=== PATIENT | male | born 1975 | race Caucasian/White ===

== ENCOUNTER 2022-09-03 16:43 | Emergency (ER) | payer OTHER, SELFPAY ==
[2022-09-03 16:57] VITALS: BP 128/80; PULSE 84; RESP 16; TEMP 38; O2SAT 99
--- NOTE | 2022-09-03 17:06 | ED.MALEGU ---
HPI - Male Genitourinary General Chief complaint: Urogenital-Male Stated complaint: Low back pain; fever Time Seen by Provider: 09/03/22 17:07 Source: patient and RN notes reviewed Mode of arrival: ambulatory Limitations: no limitations History of Present Illness HPI Narrative: 47 y/o male presented for c/o persistent low back pain for one week. Endorses left testicular pain for 2 days. Reports fever, headache, and decreased appetite started today. Temp 101 at home. Denies urinary complaints such as hematuria, dysuria, change in stream, decreased output. Denies n/v/d/constipation, testicular swelling or discoloration. Denies numbness, tingling or weakness of lower extremities. Rates back pain 5/10. Has taken Tylenol for symptoms, nothing today. Related Data Allergies Allergy/AdvReac Type Severity Reaction Status Date / Time clindamycin Allergy Unknown Rash Verified 09/03/22 16:58 Review of Systems Review of Systems: Per HPI [facility] Family History Family History Father Hypertension Sibling Hypertension Social History Social History Smoking status: Never smoker Second hand tobacco smoke exposure: Yes Alcohol intake: current Alcohol use details: rare Substance use: never Substance use type: does not use Gender identity (if verbalized by the patient): Male Sexual Orientation (if Verbalized by the Patient): Straight or Heterosexual Comments At time of signature, I have reviewed and agree with nursing past medical, surgical, social and family history unless otherwise noted. Please see nursing chart for further information. There is no relevant family history pertinent to the presenting complaint Exam Narrative: GENERAL: Well-appearing, appears in pain, in no acute distress. HEAD: Normocephalic EYES: EOMI. . ENT: Mucous membranes pink and moist. NECK: Normal AROM. Supple. CHEST: No respiratory distress. Clear to auscultation. HEART: Regular rate and rhythm. ABDOMEN: Soft, nontender, nondistended, normal active bowel sounds. No CVA tenderness. MUSCULOSKELETAL: No bony tenderness. Patient holding both sides of the lower back. SKIN: Warm, dry, no rash. NEURO: Alert and oriented x3. Gait steady. PSYCH: Normal affect. Course Course Emergency Course: Patient is aware of diagnosis, understands and agrees to treatment plan. Anticipatory guidance given. Portions of this record may have been created with voice recognition software Level of Care: Express Care Visit Vital Signs Vital signs: Vital Signs Oxygen Delivery Room Air 09/03/22 16:50 Temperature 100.4 F H 09/03/22 16:57 Pulse Rate 84 09/03/22 16:57 Respiratory Rate 16 09/03/22 16:57 Blood Pressure 128/80 09/03/22 16:57 Pulse Oximetry 99 09/03/22 16:57 Oxygen Delivery Room Air 09/03/22 16:50 Reviewed Transfer Transfered to: [place] Transportation: Other (Private vehicle) Transfer rationale: Pt is agreeable to transfer. Requests transfer to [facility] via private vehicle. Risks of transportation reviewed with pt including injury, worsening of condition and . v/u. will be driving pt; Report called to hospital, spoke with Grazyna Salter accepting physician. Pt is in stable condition at time of transfer. Advised to remain NPO and go directly to the hospital. MDM - Male Genitourinary MDM Narrative Medical decision making narrative: Patient presented for low back pain, left testicular pain,fever, headache, and decreased appetite. Flu negative. Urine unremarkable. No CVA tenderness. Reports left testicular pain. Reports back pain is worsening. Recommend ER transfer. Requests [place]. Differential Diagnosis Differential diagnosis: Likely urinary tract infection, urethritis, prostatitis and other (renal colic, discitis) Lab Data Labs: Influenza A Screen Negative
--- NOTE | 2022-09-03 18:06 | PC.NURSE ---
PT REPORTS HIS BACK PAIN IS GETTING WORSE SITTING IN EXAM ROOM. CROCHETER HAND IS AWARE, ORDERS TO BE PLACED.
[2022-09-03] MEDS: KETOROLAC (*BKC) 60 MG/2 ML VIAL IM (18:17)
[2022-09-03 18:20] VITALS: PULSE 96; RESP 16; TEMP 38.8; O2SAT 99
== END 2022-09-03 18:30 | disposition short-term general hospital (02) ==
PROVIDERS: Emergency Provider Nurse Practitioner Family; PCP Family Medicine
DX: N50.812 Left testicular pain (principal); M54.50 Low back pain, unspecified
CPT/HCPCS: 81003; 87804; 96372; 99213; G0463; J1885

== ENCOUNTER 2022-09-03 18:55 | Emergency (ER) | payer OTHER, SELFPAY ==
[2022-09-03] VITALS (11 sets, daily range): BP systolic 116–127; BP diastolic 73–82; PULSE 73–85; RESP 20; TEMP 36.8; O2SAT 96–99
--- NOTE | ~2022-09-03 | US_ITS ---
EXAMINATION: US scrotum doppler DATE: 09/03/2022 19:42 INDICATION: L SIDED TESTICULAR PAIN . TECHNIQUE: Grayscale and Doppler ultrasound images of the testes were obtained. COMPARISON: None. FINDINGS: The right testis measures 4.6 x 2.1 x 2.7 cm. The left testis measures 4.6 x 2.2 x 2.8 cm. No testicular mass. There is normal vascular flow to both testes. The right epididymis is normal with normal vascular flow. The left epididymis contains 3 small epididymal cysts and is otherwise normal with normal vascular flow. There is no varicocele or hydrocele IMPRESSION: Normal scrotal ultrasound findings. Reviewed, dictated and finalized at location K. 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
--- NOTE | ~2022-09-03 | CT_ITS ---
CT Abdomen and Pelvis with contrast. History: Left flank pain, fever. Spiral CT of the abdomen and pelvis was performed after the administration of intravenous contrast. 1 00 cc of Omnipaque 350 was administered intravenously without complication. Dose reduction technique was used on this scan by utilizing automated exposure control and iterative reconstruction technique. The dose-length product (DLP) was 397.72 mGy-cm. Findings: Scans through the lung bases demonstrate minimal pleural fluid bilaterally. The liver, spleen, pancreas, gallbladder, adrenals and kidneys are within normal limits. No evidence of aortic aneurysm. No lymphadenopathy is seen. There is no evidence of bowel obstruction. There is no evidence to suggest acute appendicitis or dive rticulitis. Images through the pelvis were performed. Urinary bladder unremarkable. Prostate gland mildly enlarge d. No ascites is seen. Impression: Minimal pleural fluid bilaterally, otherwise unremarkable exam. Reviewed, dictated and finalized at [facility]. CAL ATTENDANT Impression: Minimal pleural fluid bilaterally, otherwise unremarkable exam.
--- NOTE | 2022-09-03 22:10 | ED.GENADULT ---
HPI - General Adult General Chief complaint: Urogenital-Male Stated complaint: L TESTICULAR PAIN,FEVER,LBP Time Seen by Provider: 09/03/22 21:05 History of Present Illness HPI narrative: 47-year-old male presents to the emergency room from urgent care for evaluation of left flank pain and radiates into his testicular region. Patient states he has been experiencing left flank pain for 1 week, and has since started radiating into his left testicle. Patient states of urgent care he was given a shot of Toradol which relieved his symptoms. Patient denies dysuria, hematuria or difficulty urinating. Denies constipation or pain when he defecates. Reports normal, regular bowel movements. Patient states that he began experiencing low-grade fever today Related Data Allergies Allergy/AdvReac Type Severity Reaction Status Date / Time clindamycin Allergy Unknown Rash Verified 09/03/22 16:58 Review of Systems Review of Systems: CONSTITUTIONAL: Denies fever, chills, or sweats. EYES: Denies visual changes, redness, or discharge. ENT: Denies rhinorrhea, congestion, sore throat, or otalgia. CARDIOVASCULAR: Denies chest pain, palpitations, or edema. RESPIRATORY: Denies cough or dyspnea. GASTROINTESTINAL: Reports left flank pain GENITOURINARY: Reports left-sided testicular pain SKIN: Denies rash or itching. MUSCULOSKELETAL: Denies back pain, joint pain, or myalgia. NEUROLOGIC: Denies headache, numbness, dizziness, or weakness. PSYCHIATRIC: Denies anxiety or depression. [facility] Family History Family History Father Hypertension Sibling Hypertension Social History Social History Smoking status: Never smoker Second hand tobacco smoke exposure: Yes Alcohol intake: current Alcohol use details: rare Substance use: never Substance use type: does not use Gender identity (if verbalized by the patient): Male Sexual Orientation (if Verbalized by the Patient): Straight or Heterosexual Exam Narrative: GENERAL: Well-appearing, well-nourished, no physical limitations, and in no acute distress. HEAD: Normocephalic, atraumatic. EYES: Conjunctivae normal, PERRLA and EOMI. CHEST: Clear to auscultation. No respiratory distress. No wheezes rales or rhonchi. HEART: Regular rate and rhythm. No murmur heard. Normal peripheral pulses. ABDOMEN: Soft, nontender, nondistended, normal active bowel sounds. : Normal external male/female exam. BACK: Left CVA tenderness EXTREMITIES: Normal range of motion. No edema. No clubbing or cyanosis SKIN: Warm, dry, no rash. No noted wounds NEURO: No focal deficits. Alert and oriented x3. MAEW. CN's II-XI intact bilaterally, normal gait PSYCH: Cooperative. Normal mood and affect. Course Vital Signs Vital signs: Vital Signs Temperature 36.8 C 09/03/22 19:38 Pulse Rate 85 09/03/22 19:38 Respiratory Rate 20 09/03/22 19:38 Blood Pressure 127/76 09/03/22 19:38 Pulse Oximetry 96 09/03/22 19:38 Oxygen Delivery Room Air 09/03/22 19:38 Temperature 36.8 C 09/04/22 00:46 Pulse Rate 74 09/04/22 00:46 Respiratory Rate 16 09/04/22 00:46 Blood Pressure 130/78 09/04/22 00:46 Pulse Oximetry 100 09/04/22 00:46 Oxygen Delivery Room Air 09/03/22 19:38 Medical Decision Making MDM Narrative Medical decision making narrative: 47-year-old male came in complaining of left flank pain radiating to his left testicle. Exam showed no signs of peritonitis. No evidence of acute appendectomy at this time. Patient was well-appearing and nontoxic. Scrotal ultrasound was obtained initially due to concerns over possible testicular torsion. Ultrasound was normal. Due to the patient having flank pain, CT scan was obtained. There is no evidence of obstructing stone CT scan showed possible enterocolitis. Labs were unremarkable. Urine was clean. Presentation is not consistent
[2022-09-03 23:00] LABS: Basophils Percent Auto 0.3 % (0.2-1.2); Eosinophils Absolute Auto 0.1 K/mm3 (0-0.3); Eosinophils Percent Auto 0.7 % (0-4.4); Hematocrit 41.4 % (42.0-52.0); Hemoglobin 13.9 g/dL (14.0-18.0); Immature Granulocyte Absolute 0.01 K/mm3 (0.00-0.031); Immature Granulocyte Percent A 0.1 % (0-0.5); Lymphocytes Absolute Auto 1.24 K/mm3 (0.9-3.2); Lymphocytes Percent Auto 17.9 % (18.3-44.2); Mean Corpuscular HGB Conc 33.6 g/dl (32-36); Mean Corpuscular Volume 89.2 fl (80-100); Mean Platelet Volume 10.5 fl (7.4-10.4); Monocytes Absolute Auto 0.8 K/mm3 (0.1-0.6); Neutrophils Absolute Auto 4.8 K/mm3 (1.3-6.7); Platelet Count Result 172 k/mm3 (150-375); Red Blood Count 4.64 M/mm3 (4.6-6.20); Red Cell Distribution Width 11.9 % (11.5-14.5); White Blood Count 6.9 K/mm3 (4.5-10.0)
[2022-09-03 23:01] LABS: Add Urine Microscopic? NO; Appearance Urine Clear (Clear); Bilirubin Urine Negative (Negative); Blood Urine Negative (Negative); Color Urine Light Yellow (Yellow); Glucose Urine UA Negative (Negative); Ketones Urine Negative (Negative); Leukocyte Esterase Ur Negative LEU/UL (Negative); Nitrate Urine Negative (Negative); Protein Urine Negative (Negative); Specific Grav Ur <= 1.005 (1.001-1.035); Urobilinogen Urine 0.2 mg/dL (<2.0)
[2022-09-03 23:08] LABS: RBC Urine 0-2 /hpf (0-2); WBC Urine 0-3 /hpf
[2022-09-03 23:12] LABS: Alanine Aminotransferase 26 U/L (6-50); Alkaline Phosphatase 40 U/L (38-126); Anion Gap 8 mmol/L (8-16); Aspartate Amino Transferase 27 U/L (17-59); Bilirubin,Total 0.5 mg/dL (0.2-1.3); Blood Urea Nitrogen 11 mg/dL (9-20); Calcium 8.3 mg/dL (8.4-10.2); Carbon Dioxide 27 mmol/L (22-30); Chloride 102 mmol/L (98-107); Estimated CRCL calculation 92 ml/min; Estimated Glomerular Filt Rate > 60; Glucose 105 mg/dL (65-110); Potassium 3.5 mmol/L (3.4-5.0); Sodium 137 mmol/L (137-145)
[2022-09-03] MEDS: SODIUM CHLORIDE 0.9% IV 1,000 ML 999 ML IV CONT (23:21)
[2022-09-04] VITALS (14 sets, daily range): BP systolic 125–133; BP diastolic 77–82; PULSE 72–74; RESP 16; TEMP 36.7–36.8; O2SAT 91–100
== END 2022-09-04 01:47 | disposition home or self-care (01) ==
PROVIDERS: Emergency Provider Nurse Practitioner Family; PCP Family Medicine
DX: K52.9 Noninfective gastroenteritis and colitis, unspecified (principal); N50.812 Left testicular pain
CPT/HCPCS: 36415; 74177; 76870; 80053; 81003; 85025; 87804; 93976; 96360; 96372; 99284; J1885; J7030; Q9967

== ENCOUNTER 2023-02-05 07:05 | Day surgery (SDC) | payer OTHER, SELFPAY ==
[2022-12-19 14:21] VITALS: BMI 22.4
[2023-01-16 10:52] VITALS: BMI 21.7
--- NOTE | 2023-02-04 17:17 | P.PNAN_ITS ---
Anes - Initial Pre Proc Eval Procedure: Operation Date: 02/05/23 09:00 Proposed Procedures p Screening Colonoscopy - Simone Ontiveros MD Date/Time: 02/04/23 17:17 Surgeon: Simone Ontiveros MD Pre Op Diagnosis: Neoplasm Screening Patient Data Age: 47 Gender: M Height: 1.83 m Weight: 72.5 kg Allergies Allergy/AdvReac Type Severity Reaction Status Date / Time clindamycin Allergy Unknown Rash Verified 02/05/23 07:45 Home Medications Medication Instructions Recorded Confirmed Type buspirone 7.5 mg tablet See Rx Instructions .Route 11/19/22 02/05/23 Rx .COMPLEX #270 tabs trazodone 100 mg tablet See Rx Instructions .Route 11/19/22 02/05/23 Rx .COMPLEX #135 tabs sertraline 25 mg tablet (Zoloft) 25 mg PO DAILY #30 tabs 02/03/23 02/03/23 Rx Patient hx anesthesia problems: none Family hx anesthesia problems: none Results Review: All pre-operative results and documents have been reviewed as part of the pre- operative evaluation. [facility] Past Medical History Medical History (Updated 02/05/23 @ 08:39 by Simone Ontiveros MD) Colon cancer screening RUY (generalized anxiety disorder) Family History Family History Father Hypertension Sibling Hypertension Social History Social History Smoking status: Never smoker Second hand tobacco smoke exposure: Yes Alcohol intake: current Alcohol use details: rare Substance use: never Substance use type: does not use Living arrangements: with family Occupation/Education: occupation Gender identity (if verbalized by the patient): Male Sexual Orientation (if Verbalized by the Patient): Straight or Heterosexual Spiritual care concerns: No Anes - Eval Final PreProcedure Day of Procedure 02/04/23 17:17 Patient weight: normal Heart: regular rate and rhythm Lungs: clear to auscultation and normal air movement Airway: Mallampati scale class II Neurological: alert and oriented Last oral intake: >/= 8 hours ASA classification: II Emergent: no Anesthetic plan: proceed Anesthesia type and monitoring: general GIVS and standard monitoring Results Review: All pre-operative results and documents have been reviewed as part of the pre- operative evaluation. Informed Consent: The patient's anesthetic plan and its attendant risks and benefits were discussed with the patient/family/POA. Questions were solicited and answers provided to the satisfaction of the patient/family/POA.
[2023-02-05 07:52] VITALS: BMI 21.2
[2023-02-05 07:56] VITALS: BP 118/81; PULSE 74; RESP 16; TEMP 36.7; O2SAT 100
[2023-02-05] MEDS: LACTATED RINGERS 1,000 ML 150 ML IV CONT (08:10)
--- NOTE | 2023-02-05 08:38 | PM.HPGS ---
History of Present Illness History of Present Illness Consent: Risks, benefits, and alternatives have been discussed and questions answered. Patient agrees to proceed with procedure. Chief complaint: Neoplasm Screening Narrative: John Flores is a 47 year old male here for first screening colonoscopy Review of Systems Constitutional: Constitutional: Denies headache(s) and Denies weakness Eyes: Eyes: Denies blurry vision ENT: Reports Normal hearing present, Denies headache(s) and Denies neck pain Cardiovascular: Cardiovascular: Denies chest pain and Denies dyspnea Respiratory: Respiratory: Denies dyspnea Gastrointestinal: Gastrointestinal: Reports no additional gastrointestinal complaints Genitourinary: Genitourinary: Denies dysuria Musculoskeletal: Musculoskeletal: Denies neck pain Integumentary/Breasts: Skin/Breast: Denies dry skin Neurologic: Reports Normal hearing present, Denies headache(s) and Denies weakness Psychiatric: Psychiatric: Denies anxiety Endocrine: Endocrine: Denies change in body appearance Hematologic/Lymphatic: Hematologic/Lymphatic: Denies easy bleeding Allergic/Immunologic: Allergic/Immunologic: Denies urticaria PMF Past Medical History Medical History (Updated 02/05/23 @ 08:39 by Simone Ontiveros MD) Colon cancer screening RUY (generalized anxiety disorder) Family History Family History Father Hypertension Sibling Hypertension Social History Social History Smoking status: Never smoker Second hand tobacco smoke exposure: Yes Alcohol intake: current Alcohol use details: rare Substance use: never Substance use type: does not use Living arrangements: with family Occupation/Education: occupation Gender identity (if verbalized by the patient): Male Sexual Orientation (if Verbalized by the Patient): Straight or Heterosexual Spiritual care concerns: No Meds Home Medications and Allergies Home Medications Medication Instructions Recorded Confirmed Type buspirone 7.5 mg tablet See Rx Instructions .Route 11/19/22 02/05/23 Rx .COMPLEX #270 tabs trazodone 100 mg tablet See Rx Instructions .Route 11/19/22 02/05/23 Rx .COMPLEX #135 tabs sertraline 25 mg tablet (Zoloft) 25 mg PO DAILY #30 tabs 02/03/23 02/03/23 Rx Allergies Allergy/AdvReac Type Severity Reaction Status Date / Time clindamycin Allergy Unknown Rash Verified 02/05/23 07:45 Vital Signs Vital Signs - 24 hr 02/05/23 07:56 Temperature 98.0 F Pulse Rate 74 Respiratory Rate 16 Blood Pressure 118/81 Pulse Oximetry 100 Oxygen Delivery Room Air Exam Const: General: comfortable and no acute distress HENMT: Face/Nose/Sinus: Normal nares present Eyes: General: appearance normal, both eyes and all related structures Neck: Neck: no JVD Resp: Auscultation: clear to auscultation bilaterally Cardio: Rate: regular rate Rhythm: regular rhythm GI: Inspection: non-distended GI Palp: Yes Soft to palpation Skin: General skin exam: normal color Neuro: General: gait normal Speech: normal speech Extrem: General: normal to inspection Psych: Mental Status: mental status grossly normal Assessment and Plan Assessment and plan (1) Colon cancer screening: Code(s): Z12.11 - Encounter for screening for malignant neoplasm of colon Status: Acute Assessment and Plan: colonoscopy
[2023-02-05 08:54] VITALS: BP 91/64; PULSE 63; RESP 16; O2SAT 96
[2023-02-05 09:04] VITALS: BP 98/63; PULSE 63; RESP 16; O2SAT 97
[2023-02-05 09:14] VITALS: BP 103/71; PULSE 60; RESP 18; O2SAT 100
--- NOTE | 2023-02-05 10:36 | WPDANESPN ---
Anes - Prog Note Post-Op Date/Time: 02/05/23 10:36 Cardiovascular status: normal Respiratory status: normal Airway patency: baseline Mental status: baseline Post-Op hydration status: normal Vital Signs: Last Vital Signs Temp 36.7 C 02/05/23 07:56 Pulse 60 02/05/23 09:14 Resp 18 02/05/23 09:14 BP 103/71 02/05/23 09:14 Pulse Ox 100 02/05/23 09:14 O2 Del Method Room Air 02/05/23 09:14 Pain Score (VAS): 0 I/O: Intake & Output 02/04/23 02/05/23 02/05/23 23:59 07:59 15:59 Intake Total 450 Balance 450 Post-procedural complaints: none Patient Feedback: Patient satisfied with anesthetic care. Other Findings: Patient vital signs back to baseline. Patient denies nausea and vomiting. Patient's pain under control. Patient OK for discharge.
== END 2023-02-05 09:23 | disposition home or self-care (01) ==
PROVIDERS: PCP Family Medicine; Visit Provider Internal Medicine Gastroenterology
PROC: 0DJD8ZZ Inspection of Lower Intestinal Tract, Via Natural or Artificial Opening Endoscopic (ICD-10-PCS; CPT 45378; principal; 2023-02-05 09:00)
DX: Z12.11 Encounter for screening for malignant neoplasm of colon (principal)
CPT/HCPCS: 45378

== ENCOUNTER 2024-02-11 19:48 | Emergency (ER) | payer OTHER, SELFPAY ==
--- NOTE | ~2024-02-11 | CT_ITS ---
CT cervical spine wo con Ordering provider: Gregorio Gonzalez PA-C History: . right arm radiculopathy . Comparison: September 22, 2014 Technique: CT of the cervical spine was performed without contrast. Sagittal and coronal reformatted images were also obtained and reviewed. Radiation reduction technique utilized. FINDINGS: VERTEBRAE: No subluxation or acute fracture. The occipital condyles are intact. Increased kyphosis i s seen. DISC SPACES: Narrowing of the disc C5-C6. Other disc spaces are normal. Multilevel uncovertebral kae nt osteoarthritic changes. Bilateral narrowing of the foramina at the level of C5-C6. PARASPINOUS SOFT TISSUES: Normal. IMPRESSION: No acute osseous abnormality cervical spine. Reviewed, dictated and finalized at location A.
[2024-02-11 20:16] VITALS: BP 151/85; PULSE 72; RESP 18; TEMP 36.8; O2SAT 97
--- NOTE | 2024-02-11 21:50 | ED.NECK ---
HPI - Neck Pain/Injury General Chief Complaint: Neck Pain/Injury Stated Complaint: back pain Time Seen by Provider: 02/11/24 20:16 Source: patient Mode of arrival: ambulatory Limitations: no limitations History of Present Illness HPI Narrative: This is a 48-year-old male who presents to the ED with chief complaint of acute on chronic neck pain. Reports it has been bothering him more more over the past couple months but became unbearable today. Reports he was outside watering the huston when it suddenly the switched flipped. States that he was unable to lift his head without severe pain. Reports intermittent radiating pains down the left arm. He has some tingling throughout the left hand. He has appointment with PCP tomorrow. Denies fevers, chills, recent illness, headache, neck or head injury. Denies chest pain, shortness of breath or cough. Related Data Allergies Allergy/AdvReac Type Severity Reaction Status Date / Time clindamycin Allergy Unknown Rash Verified 02/11/24 20:16 Review of Systems Review of Systems: All systems as dictated in HPI PMFSH Past Medical History Medical History Colon cancer screening RUY (generalized anxiety disorder) Family History Family History Father Hypertension Sibling Hypertension Social History Social History Smoking status: Never smoker Second hand tobacco smoke exposure: Yes Alcohol intake: current Alcohol use details: rare Substance use: never Substance use type: does not use Living arrangements: with family Occupation/Education: occupation Gender identity (if verbalized by the patient): Male Sexual Orientation (if Verbalized by the Patient): Straight or Heterosexual Spiritual care concerns: No Exam Narrative: GENERAL: Well-appearing, well-nourished, and in no acute distress. HEAD: Normocephalic, atraumatic. EYES: PERRLA and EOMI. ENT: Nares clear, no rhinorrhea or epistaxis. Mucous membranes moist. Oropharynx without tonsillar hypertrophy exudate or other lesions. NECK: Supple. No adenopathy or masses. CHEST: No respiratory distress. Clear to auscultation. No wheezes rales or rhonchi HEART: Regular rate and rhythm. No murmur heard. Normal peripheral pulses. ABDOMEN: Soft, nontender, nondistended, normal active bowel sounds. MSK: Significantly reduced range of motion grossly throughout the cervical spine due to pain. Left and right rotation of the C-spine recreates radiating pains down the left arm. Extension of the neck recreates pain down the left arm. no CT LS midline tenderness. altered sensation subjectively to the left hand. 5/5 strength to the bilateral upper extremities. SKIN: Warm, dry, no rash. NEURO: Alert and oriented x3. No focal deficits. PSYCH: Normal mood and affect. Course Vital Signs Vital signs: Vital Signs Temperature 98.2 F 02/11/24 20:16 Pulse Rate 72 02/11/24 20:16 Respiratory Rate 18 02/11/24 20:16 Blood Pressure 151/85 H 02/11/24 20:16 Pulse Oximetry 97 02/11/24 20:16 Oxygen Delivery Room Air 02/11/24 20:16 Temperature 98.2 F 02/11/24 20:16 Pulse Rate 78 02/12/24 00:06 Respiratory Rate 15 02/12/24 00:06 Blood Pressure 142/86 H 02/12/24 00:06 Pulse Oximetry 99 02/12/24 00:06 Oxygen Delivery Room Air 02/11/24 20:16 MDM - Neck Pain/Injury MDM Narrative Medical decision making narrative: this is a 48-year-old male who presents to the ED with chief complaint of neck pain with radiation of pain into the left arm acute on chronic. Vitals are normal. Exam shows mild subjective sensation change to the low left hand. Difficulty with range of motion of the neck due to pain. ROM of the neck does recreate radiculopathy. EKG shows normal sinus rhythm. very low likelihoo
[2024-02-11] MEDS: ACETAMINOPHEN 325 MG TABLET 650 MG PO (22:04)
[2024-02-11 22:15] VITALS: BP 144/83; PULSE 79; RESP 16; O2SAT 100
[2024-02-11] MEDS: KETOROLAC 15 MG/ML VIAL (*BKC) IV PUSH (22:16)
[2024-02-11] MEDS: diazePAM INJ (*CRX) 10 MG/2 ML SYRINGE 5 MG IV PUSH (22:17)
--- NOTE | 2024-02-11 22:39 | ECG_ITS ---
[facility] [address] Test Date: 2024-02-11 Pat Name: John Flores Department: Room: Gender: M Separations Scientist: : 1975 Requested By: Jeff Arrieta Order Number: [id number] Lo MD: Cuco Juarez M.D. Measurements Intervals [place] Rate: 64 P: 48 MI: 195 QRS: 6 QRSD: 100 T: 13 QT: 400 QTc: 415 Interpretive Statements SINUS RHYTHM POSSIBLE RIGHT VENTRICULAR CONDUCTION DELAY [RSR (QR) IN V1/V2] WITHIN NORMAL LIMITS No previous ECG available for comparison Electronically Signed On 02-12-2024 09:08:51 CDT by Cuco Juarez M.D.
[2024-02-11] MEDS: MORPHINE SULFATE (*CRX) 4 MG/ML INJ IV PUSH (22:47)
--- NOTE | 2024-02-11 23:02 | PC.NURSE ---
care and report given to PAXTON Luna. all questions answered.
[2024-02-12 00:06] VITALS: BP 142/86; PULSE 78; RESP 15; O2SAT 99
== END 2024-02-12 00:07 | disposition home or self-care (01) ==
PROVIDERS: Emergency Provider Physician Assistant; PCP Family Medicine
DX: M47.22 Other spondylosis with radiculopathy, cervical region (principal); R94.31 Abnormal electrocardiogram [ECG] [EKG]
CPT/HCPCS: 72125; 93005; 96374; 96375; 99284; A9270; J1885; J2270; J3360

== ENCOUNTER 2024-03-15 15:30 | Outpatient (CLI) | payer OTHER, SELFPAY ==
--- NOTE | ~2024-03-15 | MR_ITS ---
EXAMINATION: MR cervical spine wo con DATE: 03/15/2024 16:22 INDICATION: Cervical radiculopathy. TECHNIQUE: Magnetic resonance imaging (MRI) of the cervical spine was performed without intravenous c ontrast. COMPARISON: CT cervical spine 02/11/2024 FINDINGS: There is kyphosis of cervical spine. Vertebral body heights are normal. There is severely d ecreased disc height at C5-C6 and mildly decreased disc height at C6-C7. The spinal cord signal inten sity is normal. The following disc levels are specifically discussed: C2-C3: The disc does not extend beyond the endplate margin. There is mild left uncovertebral joint os teoarthritis. There is mild bilateral facet joint osteoarthritis. There is no neural foraminal stenos is. There is no central canal stenosis. C3-C4: The disc does not extend beyond the endplate margin. There is mild right and moderate left unc overtebral joint osteoarthritis. There is mild bilateral facet joint osteoarthritis. There is mild bi lateral neural foraminal stenosis. There is no central canal stenosis. C4-C5: The disc is bulging. There is moderate bilateral uncovertebral joint osteoarthritis. There is mild bilateral facet joint osteoarthritis. There is mild bilateral neural foraminal stenosis. There i s mild central canal stenosis with ventral indentation of the spinal cord. C5-C6: There is a central extrusion. There is severe bilateral uncovertebral joint osteoarthritis. Th ere is mild bilateral facet joint osteoarthritis. There is mild right and moderate left neural forami nal stenosis. There is moderate central canal stenosis with ventral and dorsal indentation of the spi nal cord. C6-C7: There is a left central extrusion. There is mild right and moderate left uncovertebral joint o steoarthritis. There is mild bilateral facet joint osteoarthritis. There is mild left neural foramina l stenosis. There is mild central canal stenosis. There is severe stenosis of left lateral recess. C7-T1: The disc does not extend beyond the endplate margin. There is no uncovertebral joint osteoarth ritis. There is mild bilateral facet joint osteoarthritis. There is no neural foraminal stenosis. The re is no central canal stenosis. IMPRESSION: 1. Severe cervical spondylosis. Of note, an extrusion causes severe stenosis of left lateral recess a t C6-C7. Reviewed, dictated and finalized at location E. IMPRESSION: 1. Severe cervical spondylosis. Of note, an extrusion causes severe stenosis of left lateral recess at C6-C7.
== END 2024-03-15 15:31 ==
PROVIDERS: PCP Family Medicine; Visit Provider Anesthesiology Pain Medicine
DX: M43.02 Spondylolysis, cervical region (principal)
CPT/HCPCS: 72141

== ENCOUNTER 2024-03-22 08:55 | Day surgery (SDC) | payer OTHER, SELFPAY ==
[2024-03-21 10:47] VITALS: BMI 23.0
--- NOTE | ~2024-03-22 | XR_ITS ---
EXAMINATION: XR fluoroscopy no charge DATE: 03/22/2024 9:30 CDT INDICATION: LEFTWARD C7-T1 INTERLAMINAR EPI INJ . TECHNIQUE: 4 fluoroscopic images of the cervical spine were obtained during C7-T1 interlaminar epidur al injection, performed by Junaid Barger MD. I was not present during the procedure. Fluoroscopy e xposure time was 17.6 seconds. Air Kerma 4.05 mGy. COMPARISON: None FINDINGS/IMPRESSION: Fluoroscopic documentation of C7-T1 interlaminar epidural injection. Please refer to the operative no te for complete procedural details . Reviewed, dictated and finalized at location K.
--- NOTE | 2024-03-22 06:37 | WPDHPUPDATE1 ---
History and Physical Update Update Date/Time: 03/22/24 06:37 History and Physical has been reviewed, including an updated exam of the patient. There are NO changes in the patient's condition. Risks, benefits, and alternatives have been discussed and questions answered. Patient agrees to proceed with procedure.
--- NOTE | 2024-03-22 06:38 | W.PM.PROC2 ---
Procedure Note - Detailed Date of Procedure 03/22/24 Pre-op Diagnosis Cervical Radiculopathy, herniated nucleus pulposus Post-op Diagnosis Same Procedure Performed Leftward Cervical Interlaminar Epidural Steroid Injection at C7-T1 under Fluoroscopic Guidance and with Contrast Control]. Surgeon Junaid Barger MD Anesthesia Local Description of Procedure INFORMED CONSENT: Risks, benefits and alternatives to the procedure were discussed in detail with the patient who expressed explicit understanding and consent to proceed. Patient was informed verbally and in written form regarding the risks associated with the procedure including the low risk of serious infection, bleeding/bruising, allergic reaction, nerve or organ injury, paralysis, procedural site pain or discomfort, worsening pain and/or mobility, failure to treat and/or disfigurement. The patient expressed explicit understanding and consent to proceed. All materials required for the procedure were available prior to procedure start. Site and side was marked prior to procedure and confirmed in the presence of the patient. PROCEDURE IN DETAIL: The patient was brought to the procedural suite and placed in the prone position. Patient's head was positioned and stabilized with a ProneView pillow or equivalent. Patient was made comfortable with use of pillows under the chest, hips and ankles. Skin overlying the injection site was prepared broadly with ChloraPrep applicator and draped in a sterile manner. Aseptic technique was employed throughout. The endplates of the vertebral body at the site of interest were aligned in the AP view. Slight caudad tilt and ipsilateral oblique angulation was utilized to optimize visualization of the targeted posterior intervertebral foramen at C7-T1. Local anesthesia was established by infiltration with approximately 5 mL of 2% lidocaine via a 1-1/2 inch 27-gauge needle. A 20-gauge 4-inch Tuohy epidural needle was advanced intermittently until appropriate loss of resistance to air was identified via plastic loss of resistance syringe. Lateral view was used to confirm the appropriate positioning of the needle tip within the posterior epidural space. [In the AP view, 2.0 mL of Omnipaque 300 contrast medium was injected after negative aspiration for CSF, blood or other bodily fluid, showing appropriate epidural spread of contrast without evidence of intravascular or intrathecal placement.] After negative repeat aspiration for CSF, blood or other bodily fluid, A 4 mL solution containing 6 mg of betamethasone in sterile PF Normal Saline was injected after negative repeat aspiration. Appropriate spread of the injectate was confirmed with washout of previously injected contrast. No parasthesias were elicited. Needle was removed completely intact without difficulty. Images were saved and documented in the patient chart. Patient's skin was cleansed and sterile bandage applied. The patient tolerated the procedure well. The patient was transported to the recovery area in stable condition where they were observed for an appropriate amount of time prior to discharge, without evidence of complication. The patient was instructed to avoid excessive activity for the next 48 hours, including overhead work, reaching or extended device/computer usage. Showers only for 48 hours. They were instructed not to drive or operate heavy machinery for 24 hours. They are to monitor for severe headaches, fevers, chills, night sweats, erythema/swelling at the site or any other signs of infection, bleeding/bruising, bowel or bladder changes as well as new pain, weakness or numbness in the upper or lower extremity. Should they notice these changes, they are instructed to call our office immediately or report directly to the nearest Emergency Department if no answer or if after posted office hours. CONTRAST WASTED: 28mL Omnipaque 300. Estimated Blood Loss 0 IV Fluids 0 Urine Output 0 Drains No Packing No
[2024-03-22 09:18] VITALS: BP 124/88; PULSE 75; RESP 15; TEMP 36.7; O2SAT 98
[2024-03-22 09:37] VITALS: BP 126/80; PULSE 70; RESP 16; O2SAT 96
[2024-03-22 09:41] VITALS: BP 124/81; PULSE 68; RESP 16; O2SAT 95
[2024-03-22] MEDS: BETAMETHASONE SODIUM PHOSPHATE PF INJ 6 MG/ML VIAL INFILTRATE (09:46)
[2024-03-22] MEDS: LIDOCAINE HCL 1% PF INJ 5 ML VIAL 1 ML XX (09:46)
[2024-03-22 09:49] VITALS: BP 136/83; PULSE 68; RESP 16; O2SAT 98
== END 2024-03-22 09:56 | disposition home or self-care (01) ==
PROVIDERS: PCP Family Medicine; Visit Provider Anesthesiology Pain Medicine
PROC: (CPT 62321; principal; 2024-03-22 09:45)
DX: M50.13 Cervical disc disorder with radiculopathy, cervicothoracic region (principal)
CPT/HCPCS: 62321; 99199

== ENCOUNTER 2024-05-16 15:45 | Outpatient (RCR) | payer OTHER, SELFPAY ==
--- NOTE | 2024-02-18 16:39 | OPREHPOC ---
Outpatient Therapy Plan of Care This is a Multidisciplinary Plan of Care that may contain components documented by all disciplines (PT, OT, and ST.) PT Problem 1 PT Problem #1 Knowledge Deficit PT Goal 1 Goal [place] with HEP Target Visit 4 PT Problem 2 PT Problem #2 Pain PT Goal 1 Goal Patient will report ability to lay supine in bed for sleeping greater than 4 hours Target Visit 8 PT Goal 2 Goal Patient will report absence of radicular symptoms for 1 full week Target Visit 8 PT Problem 3 PT Problem #3 Impaired Range of Motion PT Goal 1 Goal Patient will demonstrate 40 degrees of cervical extension ROM to improve posture and facet glide Target Visit 8 PT Goal 2 Goal Demonstrate 55 degrees of [place] cervical rotation to improve facet glide and field of view Target Visit 8 PT Problem 4 PT Problem #4 Impaired Endurance PT Goal 1 Goal Patient will demonstrate ability to retain neutral cervical position for 5 minutes+ for improved cervical postural control
--- NOTE | 2024-02-18 16:40 | PTOPEVAL1 ---
Assessment and note entered by Micha Arora, PT Evaluation Information Assessment Status Evaluation Diagnosis Cervical Radiculopathy, Cervicalgia Onset 02/11/24 Subjective Information Reports that he is having radicular symptoms into left hand. Reports that he cannot move his neck and is not completely limited by pain. He is Right handed. Feels that he cannot sleep right now and he cannot relax his neck at all to sleep. He has been propping his neck up on the pillow in the chair. Pain is also present between shoulder blades on left side. Gets brief pain relief with traction. Reported Pain Level Pain Score 6: Self Report Assessment PT Clinical Summary Pt reports to physical therapy after going to the ER last . 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 Pt presents with cervical flexion and L side bending as resting positions and states that he has numbness down the left arm into the hand and by the L scapula. Pt displayed limited cervical ROM in all planes with pain provocation. Muscular trigger points were found in upper trapezius and addressed with functional dry needling followed by soft tissue mobilization of the area. Upon palpation of C6 region triggered pain provocation w L radicular symptoms. Cervical joint mobility was assessed and restrictions were present at c5-c6 and pain limited any down glide motions of cervical facets. After manual therapy pt showed more passive motion into extension. Pt found relief with manual cervical traction but pain continued once traction force was stopped. Physical therapy is medically necessary to address cervical radiculopathy and ROM deficits causing pain and N/T. Plan of Care Interventions Electrical Stimulation,Hot Pack/Cold Pack,Manual Therapy,Mechanical Traction,Neuro Re-education, Patient/Caregiver Educati,Therapeutic Exercise, Other PT Services Indicated Yes Treatment Frequency and 2x/week for 8 visits Duration These treatments will address the objective and functional deficits as defined above. The patient will be advanced safely and appropriately in order for the patient to progress towards his/her prior level of function. Additional exercises will be introduced and as well as a comprehensive home exercise program upon discharge
--- NOTE | 2024-04-07 08:20 | OPREHPOC ---
Outpatient Therapy Plan of Care This is a Multidisciplinary Plan of Care that may contain components documented by all disciplines (PT, OT, and ST.) PT Problem 1 PT Problem #1 Knowledge Deficit PT Goal 1 Goal [place] with HEP Target Visit 4 PT Problem 2 PT Problem #2 Pain PT Goal 1 Goal Patient will report ability to lay supine in bed for sleeping greater than 4 hours Target Visit 16 Progress Partially Met Comment Able to sporadically lay in bed last 2 nights PT Goal 2 Goal Patient will report absence of radicular symptoms for 1 full week Target Visit 16 Progress Partially Met Comment Improved but not absent PT Problem 3 PT Problem #3 Impaired Range of Motion PT Goal 1 Goal Patient will demonstrate 40 degrees of cervical extension ROM to improve posture and facet glide Target Visit 16 Progress Partially Met Comment Improve but still lacking PT Goal 2 Goal Demonstrate 55 degrees of feliberto cervical rotation to improve facet glide and field of view Target Visit 8 Progress Partially Met Comment Met Unilaterally PT Problem 4 PT Problem #4 Impaired Endurance PT Goal 1 Goal Patient will demonstrate ability to retain neutral cervical position for 5 minutes+ for improved cervical postural control Target Visit 16 Comment Remains flexed in resting position but improved
--- NOTE | 2024-04-07 08:20 | PTOPPROG ---
Assessment and note entered by Micha Arora, PT Evaluation Information Assessment Status Progress Diagnosis Cervical Radiculopathy, Cervicalgia Onset 02/11/24 Subjective Information Reports that he is having radicular symptoms into left hand. Reports that he cannot move his neck and is not completely limited by pain. He is Right handed. Feels that he cannot sleep right now and he cannot relax his neck at all to sleep. He has been propping his neck up on the pillow in the chair. Pain is also present between shoulder blades on left side. Gets brief pain relief with traction. Assessment PT Clinical Summary Patient has seen positive improvement with combination injections and physical therapy. Resting position much more upright and notable increase in cervical motion was noted. Patient will continue to benefit from skilled therapy to address these deficits for improved functional mobility and posturing with pain and radiculopathy reduction ultimate goal. Continues to report symptoms of radiculopathy on left side. Plan of Care Interventions Electrical Stimulation,Hot Pack/Cold Pack,Manual Therapy,Mechanical Traction,Neuro Re-education, Patient/Caregiver Education,Therapeutic Exercise, Other PT Services Indicated Yes Treatment Frequency and 2x/week for 8 visits Duration These treatments will address the objective and functional deficits as defined above. The patient will be advanced safely and appropriately in order for the patient to progress towards his/her prior level of function. Additional exercises will be introduced and as well as a comprehensive home exercise program upon discharge, if needed, ?to ensure carryover of functional gains achieved in the clinic. This treatment plan has been reviewed and agreement upon by the patient.
--- NOTE | 2024-05-10 13:12 | PCPTNOTE ---
Called and cancelled due to work. AKS
--- NOTE | 2024-05-16 17:04 | OPREHPOC ---
Outpatient Therapy Plan of Care This is a Multidisciplinary Plan of Care that may contain components documented by all disciplines (PT, OT, and ST.) PT Problem 1 PT Problem #1 Knowledge Deficit PT Goal 1 Goal / Goal Update [place] with HEP Target Visit 4 Progress Met PT Problem 2 PT Problem #2 Pain PT Goal 1 Goal / Goal Update Patient will report ability to lay supine in bed for sleeping greater than 4 hours Target Visit 16 Progress Met PT Goal 2 Goal / Goal Update Patient will report absence of radicular symptoms for 1 full week Target Visit 24 Progress Partially Met PT Problem 3 PT Problem #3 Impaired Range of Motion PT Goal 1 Goal / Goal Update Patient will demonstrate 40 degrees of cervical extension ROM to improve posture and facet glide Target Visit 24 Progress Partially Met PT Goal 2 Goal / Goal Update Demonstrate 55 degrees of feliberto cervical rotation to improve facet glide and field of view Target Visit 8 Progress Partially Met PT Problem 4 PT Problem #4 Impaired Endurance PT Goal 1 Goal / Goal Update Patient will demonstrate ability to retain neutral cervical position for 5 minutes+ for improved cervical postural control Target Visit 24 Progress Partially Met
--- NOTE | 2024-05-16 17:04 | PTOPPROG ---
Assessment and note entered by Micha Arora, PT Evaluation Information Assessment Status Progress Diagnosis Cervical Radiculopathy, Cervicalgia Onset 02/11/24 Subjective Information Reports that the tingling in the hands are no longer constant. Still worse in the afternoon after he has been active. Doing much better sleeping at night. Still has occasional limitations of pain. Assessment PT Clinical Summary Patient has seen progress in cervical ROM and UE strength at this point in therapy but is still shy of oil heaterman goals. Will benefit form continuation of therapy to continue to emphasize cervical ROM and radicular pain relief. Will be done in conjunction with upcoming cortisone injection. Plan of Care Interventions Electrical Stimulation,Hot Pack/Cold Pack,Manual Therapy,Mechanical Traction,Neuro Re-education, Patient/Caregiver Educati,Therapeutic Exercise, Other PT Services Indicated Yes Treatment Frequency and 2x/week for 8 visits Duration These treatments will address the objective and functional deficits as defined above. The patient will be advanced safely and appropriately in order for the patient to progress towards his/her prior level of function. Additional exercises will be introduced and as well as a comprehensive home exercise program upon discharge, if needed, ?to ensure carryover of functional gains achieved in the clinic. This treatment plan has been reviewed and agreement upon by the patient.
--- NOTE | 2024-06-22 10:19 | PCPTNOTE ---
This treatment is being continued on visit number [id number] Please see documentation on both accounts to view progress. Completed interventions, outcomes, and problems have been marked as Inactive to facilitate the copying of the Care plan routine for recurring accounts.
== END 2024-05-18 23:59 | disposition home or self-care (01) ==
LOC: ANHPT 15:45
PROVIDERS: PCP Family Medicine; Visit Provider Physician Assistant
DX: M54.12 Radiculopathy, cervical region (principal); M47.812 Spondylosis without myelopathy or radiculopathy, cervical region; M54.2 Cervicalgia; G89.29 Other chronic pain
CPT/HCPCS: 97012; 97110; 97140; 97161

== ENCOUNTER 2024-05-24 09:30 | Day surgery (SDC) | payer OTHER, SELFPAY ==
[2024-05-10 13:17] VITALS: BMI 23.0
--- NOTE | ~2024-05-24 | XR_ITS ---
EXAMINATION: XR fluoroscopy no charge DATE: 05/24/2024 10:50 INDICATION: Cervical radiculopathy. Cervical spinal stenosis. TECHNIQUE: 3 intraoperative fluoroscopic views of the cervical spine were obtained. I was not present . Fluoroscopy exposure time was 8 seconds. COMPARISON: Cervical spine MRI 03/15/2024 FINDINGS: There is a needle with injection of epidural contrast at C6-C7. IMPRESSION: 1. Epidural injection at C6-C7. Reviewed, dictated and finalized at location A.
--- NOTE | 2024-05-24 06:57 | WPDHPUPDATE1 ---
History and Physical Update Update Date/Time: 05/24/24 06:57 History and Physical has been reviewed, including an updated exam of the patient. There are NO changes in the patient's condition. Risks, benefits, and alternatives have been discussed and questions answered. Patient agrees to proceed with procedure.
--- NOTE | 2024-05-24 06:58 | W.PM.PROC2 ---
Procedure Note - Detailed Date of Procedure 05/24/24 Pre-op Diagnosis cervical radiculopathy, cervical spinal stenosis Post-op Diagnosis Same Procedure Performed Leftward Cervical Interlaminar Epidural Steroid Injection at C6-7 under Fluoroscopic Guidance and with Contrast Control. Surgeon Junaid Barger MD Anesthesia Local Description of Procedure INFORMED CONSENT: Risks, benefits and alternatives to the procedure were discussed in detail with the patient who expressed explicit understanding and consent to proceed. Patient was informed verbally and in written form regarding the risks associated with the procedure including the low risk of serious infection, bleeding/bruising, allergic reaction, nerve or organ injury, paralysis, procedural site pain or discomfort, worsening pain and/or mobility, failure to treat and/or disfigurement. The patient expressed explicit understanding and consent to proceed. All materials required for the procedure were available prior to procedure start. Site and side was marked prior to procedure and confirmed in the presence of the patient. PROCEDURE IN DETAIL: The patient was brought to the procedural suite and placed in the prone position. Patient's head was positioned and stabilized with a ProneView pillow or equivalent. Patient was made comfortable with use of pillows under the chest, hips and ankles. Skin overlying the injection site was prepared broadly with ChloraPrep applicator and draped in a sterile manner. Aseptic technique was employed throughout. The endplates of the vertebral body at the site of interest were aligned in the AP view. Slight caudad tilt and ipsilateral oblique angulation was utilized to optimize visualization of the targeted posterior intervertebral foramen at C6-7. Local anesthesia was established by infiltration with approximately 5 mL of 2% lidocaine via a 1-1/2 inch 27-gauge needle. A 20-gauge 4-inch Tuohy epidural needle was advanced intermittently until appropriate loss of resistance to air was identified via plastic loss of resistance syringe. Lateral view was used to confirm the appropriate positioning of the needle tip within the posterior epidural space. In the AP view, 2.0 mL of Omnipaque 300 contrast medium was injected after negative aspiration for CSF, blood or other bodily fluid, showing appropriate epidural spread of contrast without evidence of intravascular or intrathecal placement. After negative repeat aspiration for CSF, blood or other bodily fluid, A 4 mL solution containing 6 mg of betamethasone in sterile PF Normal Saline was injected after negative repeat aspiration. Appropriate spread of the injectate was confirmed with washout of previously injected contrast. No parasthesias were elicited. Needle was removed completely intact without difficulty. Images were saved and documented in the patient chart. Patient's skin was cleansed and sterile bandage applied. The patient tolerated the procedure well. The patient was transported to the recovery area in stable condition where they were observed for an appropriate amount of time prior to discharge, without evidence of complication. The patient was instructed to avoid excessive activity for the next 48 hours, including overhead work, reaching or extended device/computer usage. Showers only for 48 hours. They were instructed not to drive or operate heavy machinery for 24 hours. They are to monitor for severe headaches, fevers, chills, night sweats, erythema/swelling at the site or any other signs of infection, bleeding/bruising, bowel or bladder changes as well as new pain, weakness or numbness in the upper or lower extremity. Should they notice these changes, they are instructed to call our office immediately or report directly to the nearest Emergency Department if no answer or if after posted office hours. CONTRAST WASTED: 28mL Omnipaque 300. Complications No immediate complications Condition Stable Disposition Same day [facility]
[2024-05-24 09:55] VITALS: BP 120/85; PULSE 79; RESP 16; TEMP 37.1; O2SAT 99
[2024-05-24 10:38] VITALS: BP 121/72; PULSE 68; RESP 21; O2SAT 99
[2024-05-24] MEDS: BETAMETHASONE SODIUM PHOSPHATE PF INJ 6 MG/ML VIAL INFILTRATE (10:44)
[2024-05-24] MEDS: LIDOCAINE HCL 1% PF INJ 5 ML VIAL XX (10:45)
[2024-05-24 10:46] VITALS: BP 117/78; PULSE 66; RESP 16; O2SAT 98
[2024-05-24 10:53] VITALS: BP 126/85; PULSE 68; RESP 16; TEMP 37.1; O2SAT 100
== END 2024-05-24 11:15 | disposition home or self-care (01) ==
PROVIDERS: PCP Family Medicine; Visit Provider Anesthesiology Pain Medicine
PROC: (CPT 62321; principal; 2024-05-24 11:00)
DX: M54.12 Radiculopathy, cervical region (principal); M48.02 Spinal stenosis, cervical region
CPT/HCPCS: 62321; 99199

== ENCOUNTER 2024-07-28 15:30 | Outpatient (RCR) | payer OTHER, SELFPAY ==
--- NOTE | 2024-06-22 10:20 | PCPTNOTE ---
This treatment is being continued from visit number [id number] Please see documentation on both accounts to view progress. Completed interventions, outcomes, and problems have been marked as Inactive to facilitate the copying of the Care plan routine for recurring accounts.
--- NOTE | 2024-06-22 16:24 | PCPTNOTE ---
pt was 20 minutes late for today's reevaluation
--- NOTE | 2024-06-22 16:25 | OPREHPOC ---
Outpatient Therapy Plan of Care This is a Multidisciplinary Plan of Care that may contain components documented by all disciplines (PT, OT, and ST.) PT Problem 1 PT Problem #1 Knowledge Deficit PT Goal 1 Goal / Goal Update [place] with HEP Target Visit 4 Progress Met PT Goal 2 Goal / Goal Update 06-22-24 progress goal met continue to progress HEP Target Visit 27 PT Problem 2 PT Problem #2 Pain PT Goal 1 Goal / Goal Update Patient will report ability to lay supine in bed for sleeping greater than 4 hours 06-22-24 progress goal met- pt reports able to sleep for 7 hours Target Visit 16 Progress Met PT Goal 2 Goal / Goal Update Patient will report absence of radicular symptoms for 1 full week 06-22-24 progress goal not met NEW GOAL: 1* pt report radicular pain into L LE 75% day Target Visit 27 Progress Partially Met PT Problem 3 PT Problem #3 Impaired Range of Motion PT Goal 1 Goal / Goal Update Patient will demonstrate 40 degrees of cervical extension ROM to improve posture and facet glide 06-22-24 progress goal not met continue towards Target Visit 27 Progress Partially Met PT Goal 2 Goal / Goal Update Demonstrate 55 degrees of fel[place] cervical rotation to improve facet glide and field of view 06-22-24 progress goal met for rotation to R NEW GOAL: 1* active cervical rotation to R 60' 2* active cervical rotation to L 60' Target Visit 27 Progress Partially Met PT Problem 4 PT Problem #4 Impaired Endurance PT Goal 1 Goal / Goal Update Patient will demonstrate ability to retain neutral cervical position for 5 minutes+ for improved cervical postural control 06-22-24 progress goal not met continue towards goal Target Visit 27 Progress Partially Met
--- NOTE | 2024-06-22 16:25 | PTOPPROG ---
Assessment and note entered by Radha Beck, PT Progress Report Assessment Status Progress Diagnosis Cervical Radiculopathy, Cervicalgia Onset 02/11/24 Subjective Information neck pain is about the same; had 2 injections and they helped for about 1 week, then pain returned; saw pain management last week; see surgeon, Dr Parker in August; does not really want to have surgery, but will see what they say; pain management gave him new med, not yet started taking it, just picked it up from pharmacy yesterday; want to continue therapy- it is helping PAIN range in the past week, -01/14; neck and L upper traps; numb down arm to index finger all of the time; increase pain: coughing, sneezing, laughing, rotation to L, chin tucks decrease pain: heat, change positions take aleve or ibuprofen reported sleeping tolerance of 7 hours, but still wake up tired; Assessment PT Clinical Summary John has received a total of 19 PT sessions. Compared to the last progress report: pain about the same at , continues to have radicular pain into L index finger constantly; sleeping tolerance increased to 7 hours; self assessment Neck Disability Index rating of 28% limitation in activity level--was at 68% on initial evaluation; slight increase in cervical rotation R and L ROM; pain increases with cervical retraction, rotation to L and extension motions; both shoulders with full ROM and no pain increase; increase strength of cervical-thoracic--now able to maintain neutral cervical position; The goals were partially met. Continue PT treatment. Plan of Care Interventions Electrical Stimulation,Hot Pack/Cold Pack,Manual Therapy,Mechanical Traction,Neuro Re-education, Therapeutic Activities,Therapeutic Exercise, Ultrasound,Other Other Interventions dry needling, taping PT Services Indicated Yes Treatment Frequency and 2x/wk for 8 visits Duration These treatments will address the objective and functional deficits as defined above. The patient will be advanced safely and appropriately in order for the patient to progress towards his/her prior level of function. Additional exercises will be introduced and as well as a comprehensive home exercise program upon discharge, if needed, ?to ensure carryover of functional gains achieved in the clinic. This treatment plan has been reviewed and agreement upon by the patient.
--- NOTE | 2024-07-28 17:28 | PTOPDC ---
Assessment and note entered by Micha Arora, PT Evaluation Information Assessment Status Progress Diagnosis Cervical Radiculopathy, Cervicalgia Onset 02/11/24 Subjective Information Reports that overall he has seen improvement. in cervical mobility and sleeping. He still feels like he cannot extend his neck and is getting numbness into the index finger. Spoke with Neurosurgeon and was told to remain on course as he has improved. Surgery would be last resort. Reported Pain Level Pain Score 1: Self Report Assessment PT Clinical Summary Patient has made considerable progress in shoulder girdle strength, posture, and cervical mobility. Patient understands HEP and will continue to work towards maintaining and improving objective measures. Plan of Care PT Services Indicated Yes
== END 2024-07-29 11:03 | disposition home or self-care (01) ==
LOC: ANHPT 15:30
PROVIDERS: PCP Family Medicine; Visit Provider Physician Assistant
DX: M54.12 Radiculopathy, cervical region (principal); M47.812 Spondylosis without myelopathy or radiculopathy, cervical region; M48.02 Spinal stenosis, cervical region; M54.2 Cervicalgia; G89.29 Other chronic pain
CPT/HCPCS: 97110; 97140